=== PATIENT | male | born 1990 | race Hispanic/Latino ===

== ENCOUNTER 2018-07-17 09:03 | Emergency (ER) | payer BC ==
[2018-07-17 09:08] VITALS: RESP 18; BMI 20.4
[2018-07-17] MEDS ORDERED: Sodium Chloride 0.9% 1,000 ML IV STA ×3 (09:29→12:10)
--- NOTE | 2018-07-17 09:45 | ED PDOC ---
HPI:Nausea, Vomiting, Diarrhea Time Seen by Provider: 07/17/18 09:25 Chief Complaint (Nursing): GI Problem Chief Complaint (Provider): GI Problem History Per: Patient History/Exam Limitations: no limitations Onset/Duration Of Symptoms: Days (x2) Current Symptoms Are (Timing): Still Present Additional Complaint(s): 28 year old male with pmHx of HIV and gastritis, arrives to ED for an evaluation of vomiting associated with feeling dehydrated, general weakness, nausea, headache, and upper abdominal pain since last night. He admits to drinking approximately 6 glasses of wine prior to onset of symptoms. Patient denies any radiation of pain, neck pain, chest pain, shortness of breath, or urinary complaints. PCP: Dheeraj Abel Past Medical History Reviewed: Historical Data, Nursing Documentation, Vital Signs Vital Signs: Last Vital Signs Temp 98 F 07/17/18 09:07 Pulse 83 07/17/18 09:07 Resp 18 07/17/18 09:07 BP 114/70 07/17/18 09:07 Pulse Ox 96 07/17/18 09:07 - Medical History PMH: Gastritis, HIV - Family History Family History: States: Unknown Family Hx - Home Medications Home Medications: Ambulatory Orders Medication Instructions Recorded No Known Home Med 07/17/18 - Allergies Allergies/Adverse Reactions: Allergies Allergy/AdvReac Type Severity Reaction Status Date / Time tree nut Allergy RASH Verified 07/17/18 09:22 Review of Systems ROS Statement: Except As Marked, All Systems Reviewed And Found Negative Constitutional: Positive for: Weakness Cardiovascular: Negative for: Chest Pain Respiratory: Negative for: Shortness of Breath Gastrointestinal: Positive for: Nausea, Vomiting, Abdominal Pain (upper) Genitourinary Male: Negative for: Dysuria, Incontinence, Hematuria Musculoskeletal: Negative for: Neck Pain Neurological: Positive for: Headache Physical Exam - Reviewed Nursing Documentation Reviewed: Yes Vital Signs Reviewed: Yes - Physical Exam Appears: Positive for: Uncomfortable, In Acute Distress (mild to moderate) Head Exam: Positive for: ATRAUMATIC, NORMAL INSPECTION, NORMOCEPHALIC Skin: Positive for: Dry. Negative for: Rash Eye Exam: Positive for: PERRL, Other (dilated pupils bilaterally) ENT: Positive for: Normal ENT Inspection. Negative for: Pharyngeal Erythema, Tonsillar Swelling Neck: Positive for: Normal, Supple Cardiovascular/Chest: Positive for: Regular Rate, Rhythm Respiratory: Positive for: Normal Breath Sounds. Negative for: Wheezing, Respiratory Distress Gastrointestinal/Abdominal: Positive for: Soft, Tenderness (epigastric) Back: Positive for: Normal Inspection. Negative for: L CVA Tenderness, R CVA Tenderness Extremity: Positive for: Normal ROM (upper/lower) Neurologic/Psych: Positive for: Alert, Oriented. Negative for: Motor/Sensory Deficits - Laboratory Results Result Diagrams: 07/17/18 09:25 07/17/18 09:25 - ECG O2 Sat by Pulse Oximetry: 96 (RA) Pulse Ox Interpretation: Normal - Progress Re-evaluation Time: 12:50 Condition: Re-examined Medical Decision Making Medical Decision Making: Time: 325 Initial Impression: Gastritis; Headache Initial Plan: * Labs * IV fluids * Pepcid 20mg IVP * Toradol 30mg IV * Zofran 4 mg IVP Scribe Attestation: Documented by Re Emmanuel, acting as a scribe for Che Espinoza MD. Provider Scribe Attestation: All medical record entries made by the Scribe were at my direction and personally dictated by me. I have reviewed the chart and agree that the record accurately reflects my personal performance of the history, physical exam, medical decision making, and the department course for this patient. I have also personally directed, reviewed, and agree with the discharge instructions and disposition. Disposition - Clinical Impression Clinical Impression: Gastritis - Patient ED Disposition Is Patient to be Admitted: No Doctor Will See Patient In The: Office Counseled Patient/Family Regarding: Diagnosis, Need For Followup - Disposition Disposition: Routine/Home Disposition Time: 13:30 Condition: STABLE Instructions: Gastritis Forms: [employer] (Malaysian) - POA Present On Arrival: None
[2018-07-17 09:56] LABS: BASO % 0.1 % (0.0-2.0); EOS % 0.2 % (0.0-4.0); HEMOGLOBIN 15.5 g/dL (12.0-18.0); LYMPH # 1.6 K/uL (1.0-4.3); LYMPH % 27.5 % (20.0-40.0); MEAN CELL VOLUME 95.3 fl (80.0-94.0); MEAN CORPUSCULAR HEMOGLOBIN 31.9 pg (27.0-31.0); MEAN CORPUSCULAR HGB CONC 33.5 g/dL (33.0-37.0); MEAN PLATELET VOLUME 7.7 fl (7.2-11.7); MONO # 0.4 K/uL (0.0-0.8); MONO % 6.8 % (0.0-10.0); NEUT # 3.9 K/uL (1.8-7.0); NEUT % 65.4 % (50.0-75.0); NRBC % 0.1 % (0.0-0.0); RBC 4.87 Mil/uL (4.40-5.90); RED CELL DISTRIBUTION WIDTH 14.1 % (11.5-14.5)
[2018-07-17 10:08] LABS: ALB/GLOB RATIO 1.6 (1.0-2.1); ALBUMIN 4.7 g/dL (3.5-5.0); ALT/SGPT 26 U/L (21-72); AST/SGOT 30 U/L (17-59); BLOOD UREA NITROGEN 12 mg/dl (9-20); CALCIUM 9.5 mg/dL (8.4-10.2); GFR NON-AFRICAN AMERICAN > 60; LIPASE 52 U/L (23-300)
[2018-07-17 13:47] VITALS: BP 112/60; PULSE 65; TEMP 98.1
[2018-07-17 13:53] VITALS: O2SAT 96
== END 2018-07-17 14:01 | disposition home or self-care (01) ==
LOC: H.ER 09:03
DX: M62.81 Muscle weakness (generalized) (principal); K29.70 Gastritis, unspecified, without bleeding; B20 Human immunodeficiency virus [HIV] disease
CPT/HCPCS: 80053; 83690; 85025; 96361; 96374; 96375; 96376; 99284; G0480; J1885; J2405; J7030